=== PATIENT | female | born 1950 | race Caucasian/White ===

== ENCOUNTER 2019-09-11 08:18 | Emergency (ER) | payer OTHER, SELFPAY ==
[2019-09-11 08:20] VITALS: BP 176/92; PULSE 105; RESP 18; TEMP 36.6; O2SAT 95; BMI 29.9
--- NOTE | 2019-09-11 08:29 | DI.RAD.S_ITS ---
PROCEDURE: XR CHEST 2V INDICATIONS: cough TECHNIQUE: 2 views of the chest were acquired. COMPARISON: None. FINDINGS: Surgical changes and devices: None. Lungs and pleura: Lungs are clear. No pleural effusions or pneumothorax. Mediastinum: Mediastinal contours are normal. Heart size is normal. Bones and chest wall: No suspicious bony abnormalities. Soft tissues appear unremarkable. IMPRESSION: No acute cardiopulmonary pathology. Dictated by: Tyrone Coffey M.D. on 09/11/2019 at 9:16 Approved by: Tyrone Coffey M.D. on 09/11/2019 at 9:18
--- NOTE | 2019-09-11 08:34 | ED.URI ---
HPI - URI/Sore Throat General Chief Complaint: Upper Respiratory Symptoms Stated Complaint: lung congestion Time Seen by Provider: 09/11/19 09:15 Source: patient Mode of arrival: Family Vehicle Limitations: no limitations History of Present Illness HPI Narrative: 68-year-old woman with a history of reflux, recent aspiration pneumonia in June complicated by Clostridium difficile after antibiotics, and hyperlipidemia visiting from the [facility] arrived 48 hours ago. Notes increasing reflux symptoms and last night increasing cough this morning sounding more productive. She denies chest pain or significant dyspnea. No lower extremity edema. Notes that the C diff diarrhea has completely resolved she has not had recurrent diarrhea and does not note any black stools recently. She is able to eat and drink, no fevers. Related Data Home Medications Medication Instructions Recorded Confirmed atorvastatin 40 mg PO DAILY 09/11/19 09/11/19 carbamazepine 100 mg PO DAILY 09/11/19 09/11/19 mirtazapine 30 mg PO DAILY 09/11/19 09/11/19 omeprazole 40 mg PO BID 09/11/19 09/11/19 zolpidem 5 mg PO BEDTIME 09/11/19 Previous Rx's Medication Instructions Recorded benzonatate [Tessalon Perles] 100 mg PO BID-TID PRN #14 cap 09/11/19 Allergies Allergy/AdvReac Type Severity Reaction Status Date / Time Penicillins Allergy Rash Verified 09/11/19 08:34 Review of Systems Review of Systems Narrative: All systems reviewed and are unremarkable except as noted in HPI and below Patient History Medical History (Updated 09/11/19 @ 10:34 by Vikki Rangel MD) Acid reflux (Acute) Aspiration pneumonia (Acute) Hyperlipidemia (Acute) Urinary tract infection (Inactive) Social History Smoking Status: Former smoker Smoking Status: Former smoker alcohol intake frequency: 0-2 drinks per day Substance Use Type: does not use Exam Narrative Exam Narrative: General: Healthy appearing, in no acute distress. Able to give a complete and coherent history. Well-nourished well-developed HEENT: Moist mucous membranes, normal sclera with reactive pupils, Neck: No JVD, supple Respiratory: Lungs with minimal wheezing no rales no rhonchi. Full and symmetrical air movement Cardiac: Regular rate and rhythm no murmurs no bruits Abdomen: Soft nontender good bowel tones, no flank pain Skin: Warm and dry, no rashes Neurologic: Grossly neurologically intact with no obvious asymmetries or abnormalities Extremities: No trauma, well perfused Psych: Cooperative, appropriate insight and affect Initial Vital Signs Initial Vital Signs: Vital Signs Temperature 97.8 F 09/11/19 08:20 Pulse Rate 105 H 09/11/19 08:20 Respiratory Rate 18 09/11/19 08:20 Blood Pressure 176/92 H 09/11/19 08:20 Pulse Oximetry 95 09/11/19 08:20 Course Orders Ordered: Discontinued Medications Benzonatate (Tessalon Perles) 100 mg PO NOW ONE Stop: 09/11/19 08:53 Last Admin: 09/11/19 09:35 Dose: 100 mg Documented by: LISA Vital Signs Vital signs: Vital Signs - 8 hr 09/11/19 08:20 Temperature 97.8 F Pulse Rate 105 H Respiratory Rate 18 Blood Pressure 176/92 H Pulse Oximetry 95 MDM - URI/Sore Throat Lab Data Lab results narrative: Leukocytosis with left shift. D-dimer slightly elevated but corrects to normal range when ages accounted for AST, ALT, alkaline phosphatase all slightly elevated no previous labs available for comparison Procalcitonin is low suggesting no severe bacterial infection Result diagrams: 09/11/19 09:22 09/11/19 09:22 Labs: Lab Results 09/11/19 09/11/19 09/11/19 Range/Units 09:22 09:22 09:22 WBC 16.6 H (4.5-11.0) X10^3/uL RBC 4.65 (4.0-5.2) X10^6/uL Hgb 14.2 (12.0-16.0) g/dL Hct 41.8 (36-46) % MCV 90.0 (80-100) fL MCH 30.6 (26-34) PG MCHC 34.0 (30-36) % RDW 13.3 (11.6-14.8) % Plt Count 256 (150-400) X10^3/uL Neut % (Auto) 78.1 H (50-75) % Lymph % (Auto) 13.4 L (25-40) % Laurens % (Auto) 7.0 (3-14) % Eos % (Auto) 1.0 L (2-4) % Baso % (Auto) 0.5 (0-2) % Neut # (Auto) 68859 H (5185-4506) /uL Lymph # (Auto) 2200 (6486-1998) /uL Laurens # (Auto) 1200 H (0-900) /uL Eos # (Auto) 200 (0-450) /uL Baso # (Auto) 100 (0-100) /uL D-Dimer 270 H (<230) ng/mL Sodium 141 (137-145) mmol/L Potassium 3.9 (3.4-5.1) mmol/L Chloride 107 (98-107) mmol/L Carbon Dioxide 23 (22-32) mmol/L BUN 16 (7-17) mg/dL Creatinine 0.90 (0.52-1.04) mg/dL Estimated GFR > 60.0 (>60) mL/min BUN/Creatinine Ratio 17.8 (6-22) Glucose 115 H (80-110) mg/dL Calcium 9.8 (8.4-10.2) mg/dL Total Bilirubin 0.5 (0.2-1.3) mg/dL AST 69 H (14-36) IU/L ALT 65 H (<35) IU/L Alkaline Phosphatase 153 H (38-126) U/L Troponin I (0.01-0.034) ng/mL NT-Pro-B Natriuret Pep 45 (<125) pg/mL Total Protein 7.7 (6.3-8.2) g/dL Albumin 4.5 (3.5-5.0) g/dL Globulin 3.2 (1.7-4.1) g/dL Albumin/Globulin Ratio 1.4 (1.0-2.8) Procalcitonin (<0.5) ng/mL 09/11/19 09/11/19 Range/Units 09:22 09:22 WBC (4.5-11.0) X10^3/uL RBC (4.0-5.2) X10^6/uL Hgb (12.0-16.0) g/dL Hct (36-46) % MCV (80-100) fL MCH (26-34) PG MCHC (30-36) % RDW (11.6-14.8) % Plt Count (150-400) X10^3/uL Neut % (Auto) (50-75) % Lymph % (Auto) (25-40) % Laurens % (Auto) (3-14) % Eos % (Auto) (2-4) % Baso % (Auto) (0-2) % Neut # (Auto) (0502-3192) /uL Lymph # (Auto) (3929-6227) /uL Laurens # (Auto) (0-900) /uL Eos # (Auto) (0-450) /uL Baso # (Auto) (0-100) /uL D-Dimer (<230) ng/mL Sodium (137-145) mmol/L Potassium (3.4-5.1) mmol/L Chloride (98-107) mmol/L Carbon Dioxide (22-32) mmol/L BUN (7-17) mg/dL Creatinine (0.52-1.04) mg/dL Estimated GFR (>60) mL/min BUN/Creatinine Ratio (6-22) Glucose (80-110) mg/dL Calcium (8.4-10.2) mg/dL Total Bilirubin (0.2-1.3) mg/dL AST (14-36) IU/L ALT (<35) IU/L Alkaline Phosphatase (38-126) U/L Troponin I < 0.012 (0.01-0.034) ng/mL NT-Pro-B Natriuret Pep (<125) pg/mL Total Protein (6.3-8.2) g/dL Albumin (3.5-5.0) g/dL Globulin (1.7-4.1) g/dL Albumin/Globulin Ratio (1.0-2.8) Procalcitonin < 0.05 (<0.5) ng/mL ECG Data Attestation: I personally reviewed and interpreted this ECG as follows: Interpretation: Normal sinus rhythm at a rate of 93 with no acute ischemic changes Normal interval, normal axis MDM Narrative Medical decision making narrative: 68-year-old woman with developing nonproductive cough, afebrile. No evidence of consolidated pneumonia, sepsis, congestive heart failure, pulmonary embolism, asthma, COPD exacerbation or other life-threatening diagnoses to explain the cough. Most likely diagnosis is viral etiology. Anticipatory guidance reviewed and prescription for Tessalon given. Discharge Plan Departure Patient Disposition: Home Clinical Impression: Viral infection Discharge Date/Time: 09/11/19 10:53 Instructions: DI for Bronchiolitis, DI for Viral Syndrome Activity Restrictions/Additional Instructions: Thank you for coming in today. I am sorry your having to spend your vacation time in the emergency department. Your workup, (including exam, blood work, chest x-ray, and EKG) suggests that you have a viral syndrome. There is no evidence of a bacterial pneumonia, overwhelming infection, heart failure, blood clots in your lungs or collapsed lungs. At this point, treating all of your symptoms and giving yourself a bit of time to heal will be the best option for you. I will give you a prescription for Tessalon Perles to help control the cough. This could be infectious and I would recommend using a mask to cover your cough and making sure that your washing her hands well. Not actively holding, kissing, touching newborns would be prudent while you are coughing. It would be strongly suggested to avoid them completely if you do develop a fever. I hope you feel better and the rest of your visit goes well Prescriptions: New benzonatate [Tessalon Perles] 100 mg capsule 100 mg PO BID-TID PRN (Reason: cough) Qty: 14 RF: 0 No Action atorvastatin 40 mg tablet 40 mg PO DAILY RF: 0 omeprazole 40 mg capsule,delayed release(DR/EC) 40 mg PO BID RF: 0 mirtazapine 30 mg tablet 30 mg PO DAILY RF: 0 carbamazepine 100 mg tablet,chewable 100 mg PO DAILY RF: 0 zolpidem 5 mg tablet 5 mg PO BEDTIME RF: 0
[2019-09-11 09:32] LABS: Add Manual Diff / Slide Review NO; Basophils Absolute Auto 100 /uL (0-100); Basophils Percent Auto 0.5 % (0-2); Eosinophils Absolute Auto 200 /uL (0-450); Hematocrit 41.8 % (36-46); Hemoglobin 14.2 g/dL (12.0-16.0); Lymphocytes Absolute Auto 2200 /uL (1100-4500); Lymphocytes Percent Auto 13.4 % (25-40); Mean Corpuscular Hemoglobin 30.6 PG (26-34); Monocytes Absolute Auto 1200 /uL (0-900); Neutrophils Absolute Auto 13000 /uL (1500-7000); Neutrophils Percent Auto 78.1 % (50-75); Platelet Count 256 X10^3/uL (150-400); Red Blood Cell Count 4.65 X10^6/uL (4.0-5.2); Red Cell Distribution Width 13.3 % (11.6-14.8); White Blood Cell Count 16.6 X10^3/uL (4.5-11.0)
[2019-09-11] MEDS: BENZONATATE 100 MG CAPSULE PO (09:35)
[2019-09-11 09:39] LABS: HEMOLYSIS < 15 (0-50)
[2019-09-11 09:44] LABS: Alanine Aminotransferase 65 IU/L (<35); Albumin 4.5 g/dL (3.5-5.0); Albumin Globulin Ratio 1.4 (1.0-2.8); Alkaline Phosphatase 153 U/L (38-126); Aspartate Aminotransferase 69 IU/L (14-36); BUN Creatinine Ratio 17.8 (6-22); Bilirubin Total 0.5 mg/dL (0.2-1.3); Blood Urea Nitrogen 16 mg/dL (7-17); Calcium 9.8 mg/dL (8.4-10.2); Carbon Dioxide 23 mmol/L (22-32); Chloride 107 mmol/L (98-107); Estimated Glomerular Filt Rate > 60.0 mL/min (>60); Globulin 3.2 g/dL (1.7-4.1); Glucose 115 mg/dL (80-110); Potassium 3.9 mmol/L (3.4-5.1); Sodium 141 mmol/L (137-145); Total Protein 7.7 g/dL (6.3-8.2)
[2019-09-11 09:48] LABS: D Dimer 270 ng/mL (<230)
[2019-09-11 09:56] LABS: Troponin I < 0.012 ng/mL (0.01-0.034)
[2019-09-11 09:58] LABS: NT-proBNP (BNP-Adult 18+) 45 pg/mL (<125)
[2019-09-11 10:03] LABS: Procalcitonin < 0.05 ng/mL (<0.5)
[2019-09-11 10:52] VITALS: BP 160/75; PULSE 99; RESP 16; O2SAT 97
== END 2019-09-11 10:53 | disposition home or self-care (01) ==
PROVIDERS: Emergency Provider Emergency Medicine
DX: B34.9 Viral infection, unspecified (principal); R05 Cough; E78.5 Hyperlipidemia, unspecified; K21.9 Gastro-esophageal reflux disease without esophagitis
CPT/HCPCS: 36415; 71046; 80053; 83880; 84145; 84484; 85025; 85379; 93005; 93010; 99284